=== PATIENT | female | born 1980 | race African-American/Black ===

== ENCOUNTER 2020-08-06 05:11 | Day surgery (SDC) | payer BC ==
[2020-08-05 08:27] VITALS: BMI 34.5
--- NOTE | 2020-08-06 13:27 | HP ---
Admitting History and Physical - Admission Chief Complaint: menorrhagia History Source: Patient Limitations to Obtaining History: No Limitations - Past Medical History [employer]: No: Alzheimer's, CVA, Dementia, Migraine, Multiple Sclerosis, Peripheral Neuropathy, Parkinson's, Seizure, Syncope, TIA, Vertigo, Other Cardiovascular: No: AFIB, Aneurysm, Aortic Insufficiency, Aortic Stenosis, CAD, CHF, Deep Vein Thrombosis, HTN, Hyperlipdemia, IL, Mitral Insufficiency, Mitral Stenosis, Murmur, Pulmonary Hypertension, Other Pulmonary: No: Asthma, Bronchitis, Cancer, COPD, O2 Dependent, Pneumonia, Previously Intubated, Pulmonary Embolus, Pulmonary Fibrosis, Sleep Apnea, Other Gastrointestinal: No: Ascites, Cancer, Constipation, Crohn's Disease, Diverticulitis, Diverticulosis, Esophageal Varices, Gastritis, GERD, GI Bleed, Hemorrhoids, Hiatal Hernia, Inflamatory Bowel Disease, Irritable Bowel Disease, Pancreatitis, Peptic Ulcer Disease, Ulcerative Colitis, Other Hepatobiliary: No: Cirrhosis, Cholelithiasis, Cholecystitis, Choledocholithiasis, Hepatitis A, Hepatitis B, Hepatitis C, Other Renal/: No: Renal Failure, Renal Inusuff, BPH, Cancer, Hematuria, Hemodialysis, Neurogenic Bladder, Renal Calculi, UTI, Other Reproductive: No: Ectopic , Endometriosis, Fibroids, PID, Polycystic Ovary Syndrome, Postmenopausal, Other ...LMP: 07/10/20 ...: No Heme/Onc: No: Anemia, B12 Deficiency, Bleeding Disorder, Cancer, Current Chemotherapy, Current Radiation Therapy, Hemochromatosis, Hypercoaguable State, Myeloproliferative Synd, Sickle Cell Disease, Sickle Cell Trait, Thrombocytopenia, Other Infectious Disease: No: AIDS, C-Diff, Herpes Zoster, HIV, MRSA, STD's, Tuberculosis, VREF, Other Psych: No: Addictions, Anxiety, Bipolar, Depression, Panic, Psychosis, Schizophrenia, Other Musculoskeletal: No: Bursitis, Chronic low back pain, Hemiparesis, Hemiplegia, Osteoarthritis, Paraplegia, Other Rheumatology: No: Fibromyalgia, Gout, Lupus, Rheumatoid Arthritis, Sarcoidosis, Vasculitis, Other ENT: No: Allergic Rhinitis, Sinusitis, Other Endocrine: No: Braz[place]'s Disease, Kersey's Disease, Diabetes Insipidus, Diabetes Mellitus, Hyperparathyroidism, Hyperthyroidism, Hypothyroidism, Osteopenia, SIADH, Other Dermatology: No: Basal Cell, Cellulitis, Eczema, Melanoma, Psoriasis, Squamous Cell, Other - Past Surgical History Past Surgical History: No: None, AAA Repair, AICD, Amputation, Appendectomy, Arthrosocopy, AV Fistula/Graft, Bariatric Surgery, Breast Biopsy, Bypass, CABG, Carotid Endarterectomy, Cataract Removal, Cholecystectomy, Colectomy, Colonoscopy, Colostomy, Craniotomy, , Cystectomy, Hernia Repair, Hysterectomy, Ileal Conduit, Ileosotomy, Joint Replacement, Kidney Transplant, Laminectomy, Liver Transplant, Mastectomy, Nephrectomy, Oopherectomy, Orch iectomy, Permanent Pacemaker, Prostatectomy, Splenectomy, Stent, Thoracotomy, TURP, Tonsillectomy, Tubal Ligation, Upper Endoscopy, Valve Replacement, Vasectomy, Vein Stripping/Ligation - Advance Directives Advance Directives: No: Living Will, Health Care Proxy, DNR, Organ Donor, Tissue Donor, MOLST - Smoking History Smoking history: Never smoked Have you smoked in the past 12 months: No - Alcohol/Substance Use Hx Alcohol Use: No History of Substance Use: reports: None - Social History Usual Living Arrangement: Yes: With Significant Other Do you think of yourself as: Straight/Heterosexual ADL: Independent History of Recent Travel: No Home Medications - Allergies Allergies/Adverse Reactions: Allergies Allergy/AdvReac Type Severity Reaction Status Date / Time No Known Allergies Allergy Verified 08/05/20 08:27 - Home Medications Home Medications: Ambulatory Orders Norethindrone-E.estradiol-Iron [Lo Loestrin Fe 1-10 Tablet] 1 tab PO DAILY 08/05/20 Family Medical History Family History: Denies Review of Systems - Review of Systems Constitutional: reports: No Symptoms Eyes: reports: No Symptoms HENT: reports: No Symptoms Neck: reports: No Symptoms Cardiovascular: reports: No Symptoms Respiratory: reports: No Symptoms Gastrointestinal: reports: No Symptoms Genitourinary: reports: No Symptoms Breasts: reports: No Symptoms Reported Musculoskeletal: reports: No Symptoms Integumentary: reports: No Symptoms Neurological: reports: No Symptoms Endocrine: reports: No Symptoms Hematology/Lymphatic: reports: No Symptoms Psychiatric: reports: No Symptoms Physical Examination Constitutional: Yes: Well Nourished, No Distress, Calm Eyes: Yes: WNL, Conjunctiva Clear, EOM Intact HENT: Yes: WNL, Atraumatic, Normocephalic Neck: Yes: WNL, Supple, Trachea Midline Cardiovascular: Yes: WNL, Regular Rate and Rhythm Respiratory: Yes: WNL, Regular, CTA Bilaterally Gastrointestinal: Yes: WNL, Normal Bowel Sounds, Soft ...Rectal Exam: Yes: WNL Renal/: Yes: WNL Breast(s): Yes: WNL Musculoskeletal: Yes: WNL Extremities: Yes: WNL Edema: No Peripheral Pulses WNL: Yes Integumentary: Yes: WNL Wound/Incision: Yes: Clean/Dry, Well Approximated Neurological: Yes: WNL, Alert, Oriented ...Motor Strength: WNL Psychiatric: Yes: WNL, Alert, Oriented Assessment/Plan for d and c , hysteroscopy, uterine ablation
[2020-08-06] MEDS ORDERED: MIDAZOLAM HCL 2 MG/2 ML SINGLE DOSE VIAL ONE (15:55)
[2020-08-06] MEDS ORDERED: PROPOFOL 20 ML ONE ×2 (15:55)
[2020-08-06] MEDS ORDERED: KETOROLAC TROMETHAMINE 30 MG/1 ML VIAL ONE (16:23)
[2020-08-06] MEDS ORDERED: DEXAMETHASONE SOD PHOSPHATE 4 MG/1 ML VIAL ONE (16:23)
[2020-08-06] MEDS ORDERED: SEVOFLURANE 250 ML BTL ONE (16:27)
[2020-08-06] MEDS ORDERED: oxyCODONE HCL 5 MG TABLET PO PRN (17:02)
[2020-08-06] MEDS ORDERED: IBUPROFEN 400 MG TABLET (FP) PO PRN ×2 (17:02→17:03)
[2020-08-06] MEDS ORDERED: ACETAMINOPHEN 325 MG TABLET (FP) PO PRN ×2 (17:02→17:03)
[2020-08-06] MEDS ORDERED: ONDANSETRON 4 MG/2 ML VIAL IVPUSH PRN (17:04)
--- NOTE | 2020-08-06 17:08 | OP ---
Operative Note - Note: Operative Date: 08/06/20 Operation: d and c, hysteroscopy, failed ablation Findings: large endometrial cavity, submucosal fibroids Post-Operative Diagnosis: Same as Pre-op Surgeon: Chris Hall Anesthesiologist/PIPE LINE REPAIRER: Rob Boykin Anesthesia: General Estimated Blood Loss (mls): 5 (large endometrial cavity, cannot fill the water to complete cavity to initiate ablation ) Operative Report Dictated: Yes
[2020-08-06] MEDS ORDERED: LACTATED RINGERS SOLUTION 1,000 ML IV SCH (17:15)
[2020-08-06 18:38] VITALS: BP 137/77; PULSE 80; TEMP 95.9
--- NOTE | 2020-08-08 08:19 | OP ---
DATE OF OPERATION: 08/06/2020 PREOPERATIVE DIAGNOSIS: Menorrhagia. POSTOPERATIVE DIAGNOSIS: Enlarged uterus and submucosal fibroids. PROCEDURE: Dilation and curettage and hysteroscopy and failed attempted endometrial ablation. SURGEON: Chris Banegas MD ANESTHESIOLOGIST: MANISH Jama INDICATION: This is a 40-year-old female patient with a history of menorrhagia for many years and patient has been referred for the endometrial ablation to Dr. Acuña in [place]. However, patient was cancelled due to the scheduling reason or due to the patient could not finish the preop courses. So, patient was educated and explained. PROCEDURE IN DETAIL: The patient was taken to the OR for D&C, hysteroscopy and ablation procedure. So, patient was placed on the operating table in the supine position. After general anesthesia was obtained, patient was placed in the lithotomy position and patient's abdomen and pelvis were prepped and draped in the usual sterile manner. A heavy speculum was placed into the patient's vagina. Cervix was grabbed with tenaculum and sounded and dilated and the D&C was done, and the uterus was enlarged. Cavity was enlarged and some submucosal fibroids were palpated. Hysteroscope was inserted and some submucosal fibroids were seen in the endometrial cavity. Then after the hysteroscopy procedure we attempted an ablation procedure. However, probably due to the endometrial cavity enlarged the water pressure could not be obtained inside the cavity. So, the ablation machine was never able to kick in. So, we tried this 4 or 5 times and we even changed water tubing. Still could not get the machine to kick in, so procedure was abandoned and patient was awakened from general anesthesia, transferred to recovery room in stable condition. CHRIS BANEGAS MD [id number]
--- NOTE | 2020-08-12 11:33 | PATH ---
Surgical Pathology Report Patient Name: EWA CALDERA Med. Rec. #: [id number] /Age/Gender: 1980 (Age: 40) / F Account: [id number] Location: [facility] Taken: 08/06/2020 Received: 08/09/2020 Reported: 08/12/2020 Physicians: Chris Hall MD Specimen(s) Received ENDOMETRIAL CURETTINGS Clinical History Menorrhagia Final Diagnosis ENDOMETRIAL CURETTINGS: FEW FRAGMENTS OF ENDOMETRIAL TISSUE WITH INACTIVE ENDOMETRIAL GLANDS AND MILD DECIDUAL REACTION OF THE STROMA. SEE COMMENT. SEPARATE ENDOCERVICAL TISSUE AND SQUAMOUS EPITHELIUM WITH NO SIGNIFICANT PATHOLOGIC CHANGE. FRAGMENTS OF OLD BLOOD CLOT PRESENT. Comment: Findings are suggestive of exogenous hormones effect. Clinical correlation is recommended. Electronically Signed Veronika Puri M.D. Gross Description Received in formalin, labeled "endometrial curettings" are multiple dark brown portions of soft tissue measuring 3 x 3 x 0.4 cm in aggregate. The specimens are submitted in toto in two cassettes. BRYSON/08/10/2020 mega/08/10/2020
== END 2020-08-06 19:07 | disposition home or self-care (01) ==
LOC: JASU-SURG 05:11
PROVIDERS: ATTEND Obstetrics & Gynecology
PROC: 0UDB7ZX Extraction of Endometrium, Via Natural or Artificial Opening, Diagnostic (ICD-10-PCS; 2020-08-06)
PROC: 0UJD8ZZ Inspection of Uterus and Cervix, Via Natural or Artificial Opening Endoscopic (ICD-10-PCS; 2020-08-06)
PROC: 0U5B8ZZ Destruction of Endometrium, Via Natural or Artificial Opening Endoscopic (ICD-10-PCS; principal; 2020-08-06 15:30)
DX: N92.0 Excessive and frequent menstruation with regular cycle (principal); D25.0 Submucous leiomyoma of uterus; Z53.8 Procedure and treatment not carried out for other reasons
CPT/HCPCS: 36415; 84703; 86850; 86900; 86901; 88305-TC; 94760